=== PATIENT | male | born 1985 | race Caucasian/White ===

== ENCOUNTER 2017-07-15 20:50 | Inpatient (IN) | payer BC ==
[~2017-07-15] VITALS: Ht 182.9 cm; Wt 82.1 kg
[2017-07-15] MEDS ORDERED: ZOFRAN IV STA (21:26)
[2017-07-15] MEDS ORDERED: NS 1000ML 1,000 ML IV STA (21:26)
[2017-07-15] MEDS ORDERED: SUBLIMAZE IV STA ×2 (21:26→23:01)
--- NOTE | 2017-07-15 21:38 | ER.PDOC ---
General Chief Complaint: Abdomen Pain Stated Complaint: ABD PAIN Time seen by MD: 21:24 Source: patient Exam Limitations: no limitations History of Present Illness Initial Comments Patient presents with right lower quad pain. patient states pain started around 2 am this am . patient states that pain is sharp and non radiating and constant. not worse with anything. sometimes better with holding. patient states + fevers n/v. no diarrhea or constipatoin . no recent travel or sick contacts. Timing/Duration: 24 hours Severity/Quality: moderate Radiation: RLQ Associated Symptoms: fever/chills, nausea/vomiting Allergies: Coded Allergies: No Known Allergies (Unverified , 07/15/17) Vital Signs First Vital Signs Date Time Temp Pulse Resp B/P (MAP) Pulse Ox O2 Delivery O2 Flow Rate FiO2 07/15/17 21:15 99.4 68 18 99 Room Air Last Vital Signs Date Time Temp Pulse Resp B/P (MAP) Pulse Ox O2 Delivery O2 Flow Rate FiO2 07/15/17 21:18 99.4 07/15/17 21:15 68 18 99 Room Air Past Medical History Medical History: no pertinent history Surgical History: no surgical history Social History Smoking: non-smoker Alcohol Use: occassionally Drug Use: none Constitutional: chills, denies diaphoresis, fever, denies malaise EENTM: denies tearing, denies ear pain, denies ear discharge Respiratory: denies cough, denies shortness of breath, denies wheezing Cardiovascular: denies chest pain, denies edema, denies palpitations Gastrointestinal: abdominal pain, denies constipated, denies diarrhea, nausea, vomiting Genitourinary: denies burning, denies dysuria, denies discharge Musculoskeletal: denies back pain, denies joint swelling Hematologic/Lymphatic: denies blood clots, denies easy bleeding, denies easy bruising All Other Systems: Reviewed and Negative Physical Exam General Appearance: No Apparent Distress HEENT: PERRL/EOMI, Normal ENT Inspection Neck: Non-Tender, Full Range of Motion, Supple Respiratory: lungs clear, normal breath sounds, no respiratory distress, no accessory muscle use Cardiovascular: Normal Peripheral Pulses, Regular Rate, Rhythm, No Edema, No Murmur Gastrointestinal: Normal Bowel Sounds, Other (+ ttp to the right lower quad, with mild voluntary guarding, without rebound. 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 on exam wtih + fevers and garuding. concern for appendiciits. labs ordered. ct ordered patients labs with elevated wbc h/h stable. lytes with slightly low k otherwise stable. coags stable ct results pending. pateint ct with + uncomplicated appendicitis. i spoke with dr grant with [facility] , would like continued hydration as well as starting cefoxitin 2 g q 6 and admit to the hospitlist i spoke with dr vale who is also aware of the patient. patient and family updated on results and need for admission. understands and agrees. EKG/XRAY/CT/US CT Comments: acute appendicitis Consult/PCP Time Consult/PCP Called: 23:11 Consult/PCP: dr grant with [facility] Course Blood Pressure Systolic: 119 Blood Pressure Diastolic: 69 Blood Pressure Mean: 86 Departure Time of Disposition: 23:13 Disposition: 09 ADMITTED INPATIENT Impression: Primary Impression: Acute appendicitis Condition: Stable Referrals: PCP,UNKNOWN (PCP) PRIMARY CARE PROVIDER Duration or Time Spent with Pa: 60 DARNELL PETERS MD Jul 15, 2017 21:38
[2017-07-15 21:42] LABS: BASOPHIL % 0.1 % (0.0-0.2); EOSINOPHIL # 0.1 10^3/uL (0.0-0.2); EOSINOPHIL % 0.6 % (0.0-5.0); HEMOGLOBIN 15.5 g/dL (13.9-16.3); LYMPHOCYTES # 1.1 10^3/uL (1.0-4.8); MEAN CELL HGB 30.9 pg (26-34); MEAN CELL HGB CONCENTRATION 33.7 g/dL (33-37); MEAN CORP VOLUME 91.6 fL (78-100); MEAN PLATELET VOLUME 11.6 fL (7.8-11.0); MONOCYTES # 1.3 10^3/uL (0.3-0.8); MONOCYTES % 10.5 % (5.0-12.0); NEUTROPHIL # 10.1 10^3/uL (1.8-7.7); NEUTROPHILS % 79.6 % (41.0-85.0); RED CELL DISTRIBUTION WIDTH 12.7 % (11.5-14.5); WHITE BLOOD CELL 12.7 10^3/uL (4.5-11.0)
[2017-07-15] MEDS ORDERED: NS 1000ML 1,000 ML ONE (21:46)
[2017-07-15] MEDS ORDERED: ZOFRAN ONE (21:46)
[2017-07-15] MEDS ORDERED: SUBLIMAZE ONE (21:46)
--- NOTE | 2017-07-15 21:56 | NUR ---
TO CT PATIENT TO CT VIA WHEELCHAIR WITH CORAZON HOPKINS
[2017-07-15 22:00] LABS: CALCIUM 9.5 mg/dL (8.4-10.5); CARBON DIOXIDE 26.4 mmol/L (20.0-32)
[2017-07-15 22:20] VITALS: BP 114/71
--- NOTE | 2017-07-15 22:56 | DIREP ---
PROCEDURE:CT ABDOMEN/PELVIS W/ CONTRAST COMPARISON:None. INDICATIONS:right lower abd TECHNIQUE:Axial images were created through the abdomen and pelvis with non-ionic intravenous contrast material. Oral contrast was administered. Sagittal and coronal reconstructions were performed from source images. FINDINGS: LOWER CHEST:Dependant atelectasis. LIVER: No hepatic lesion. Portal veins are patent. BILIARY: Gallbladder is unremarkable, no intra or extrahepatic biliary dilation. PANCREAS: Unremarkable. SPLEEN: Normal, nonenlarged. KIDNEYS: No renal mass. No right kidney. The left kidney is mildly compensatory early large at 12.6 cm. The No hydronephrosis or collecting system stone identified. ADRENALS: Normal. AORTA/VASCULAR: Circumaortic left renal vein. No aneurysm or dissection. RETROPERITONEUM: No adenopathy or mass. BOWEL/MESENTERY: No evidence of obstruction. Appendix is dilated and there is thickening of the wall, mild periappendiceal stranding suggesting acute appendicitis. No periappendiceal abscess. Mild adjacent inflammation in the cecum. ABDOMINAL WALL: Normal. No mass or hernia. URINARY BLADDER: Inherently limited evaluation of the wall; unremarkable for level of distension. PELVIS: Prostatic tissue present. No adenopathy. BONES: No bony lesion or fracture. OTHER: No free air or fluid. 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 CONCLUSION: 1. Acute appendicitis. Dictated by: Ember Littlejohn MD on 07/15/2017 at 10:51 PM
[2017-07-15 23:03] LABS: BILIRUBIN,URINE NEGATIVE (NEGATIVE); UROBILINOGEN,URINE NORMAL (NEGATIVE)
[2017-07-15 23:04] LABS: APPEARANCE,URINE CLEAR (CLEAR); UA COLOR YELLOW (YELLOW)
[2017-07-15] MEDS ORDERED: MEFOXIN 2 GM in NS 100ML 100 ML IV STA (23:06)
[2017-07-15 23:20] VITALS: BP 124/74
[2017-07-15] MEDS ORDERED: NS 100ML 100 ML IV ONE (23:26)
[2017-07-15] MEDS ORDERED: MEFOXIN ONE (23:26)
[2017-07-15] MEDS: SUBLIMAZE IV SCH (23:30)
[2017-07-16] VITALS (9 sets, daily range): BP systolic 90–133; BP diastolic 45–61
--- NOTE | 2017-07-16 00:05 | NUR ---
report pt arived on a wheelchair from ER. Dr. Jean waws in the room when pt arived. He gaeve instruction for the procedure tomoorw. Dr. Jean allowed pt to have clear liquid until 1 or 2 am. Vital signs taken and recorded. Pt verbalized no pain at the moment. Comfort measures doen. Call light withn reach. Assessment done. Will continue to monitor
[2017-07-16] MEDS: NS 1000ML 1,000 ML SCH ×4 (00:23→17:21)
[2017-07-16] MEDS ORDERED: ZOFRAN IV PRN ×2 (00:30→09:00)
[2017-07-16] MEDS ORDERED: LACTATED RINGERS 1,000 ML IV SCH (00:30)
[2017-07-16] MEDS ORDERED: MORPHINE SULFATE IV PRN ×2 (00:30→09:00)
[2017-07-16] MEDS: MORPHINE SULFATE IV PRN ×3 (00:51→18:52)
[2017-07-16] MEDS: NORCO 5MG PO PRN ×3 (04:02→21:35)
[2017-07-16] MEDS: ZOFRAN IV SCH ×6 (04:04→20:00)
[2017-07-16] MEDS ORDERED: NS 100ML 100 ML IV ONE ×3 (05:29→07:29)
[2017-07-16] MEDS: SUBLIMAZE IV SCH ×4 (05:30→23:30)
[2017-07-16] MEDS ORDERED: MEFOXIN ONE ×2 (05:31→07:29)
[2017-07-16] MEDS: MEFOXIN 2 GM in NS 100ML 100 ML IV SCH ×5 (05:52→17:20)
[2017-07-16] MEDS: LOVENOX SQ SCH (05:56)
--- NOTE | 2017-07-16 06:50 | NUR ---
OR HOLDING PT TAKEN TO OR HOLDING, REPORT GIVEN TO JORGE LEVI.
[2017-07-16] MEDS ORDERED: NS 1000ML 1,000 ML ONE (06:58)
[2017-07-16] MEDS: PROTONIX IV IV SCH ×3 (07:00→09:43)
[2017-07-16] MEDS ORDERED: NEOSTIGMINE ONE (07:03)
[2017-07-16] MEDS ORDERED: DECADRON ONE (07:03)
[2017-07-16] MEDS ORDERED: TORADOL ONE (07:03)
[2017-07-16] MEDS ORDERED: ZEMURON IV ONE (07:04)
[2017-07-16] MEDS ORDERED: VERSED ONE (07:04)
[2017-07-16] MEDS ORDERED: DIPRIVAN IV ONE (07:05)
[2017-07-16] MEDS ORDERED: PEPCID IV ONE (07:06)
[2017-07-16] MEDS ORDERED: EPHEDRINE SULFATE ONE (07:06)
[2017-07-16] MEDS ORDERED: LIDOCAINE 2% VIAL ONE (07:06)
[2017-07-16] MEDS ORDERED: SENSORCAINE-MPF 0.5% VIAL ONE (07:09)
[2017-07-16] MEDS ORDERED: SODIUM CHLORIDE IRR BAG 1,000 ML ONE (07:09)
[2017-07-16] MEDS ORDERED: SODIUM CHLORIDE IR ONE (07:09)
[2017-07-16] MEDS ORDERED: GENTAMICIN SULFATE ONE (07:10)
[2017-07-16] MEDS ORDERED: SUBLIMAZE IV PRN (09:00)
[2017-07-16] MEDS ORDERED: DEMEROL IV PRN (09:00)
[2017-07-16] MEDS ORDERED: PHENERGAN IV PRN (09:00)
--- NOTE | 2017-07-16 09:30 | NUR ---
REPORT RECEIVED BEDSIDE REPORT, PT IN SEMIFOWLERS, VITAL MONITOR INTACT, SCD INTACT, LR FLOWING AT 100CC/HR, 2L/NC, MARIIA TO BULB SUCTION, CALL LIGHT IN REACH HANDRAIL UP X2, PT DENIES PAIN, AT BEDSIDE.
--- NOTE | 2017-07-16 09:40 | NUR ---
DISCHARGE PLANNING CM VISITED WITH PATIENT AND REGARDING DISCHARGE PLAN AND NEEDS. PATIENT LIVES AT HOME WITH HIS . 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 NO DME OR O2 NEEDS. DISCHARGE GOAL IS TO DISCHARGE HOME WITH HIS . CM DEPT WILL CONTINUE TO MONITOR DISCHARGE NEEDS.
[2017-07-16] MEDS: LACTATED RINGERS 1,000 ML IV SCH ×2 (09:44→17:21)
--- NOTE | 2017-07-16 11:05 | OPH ---
DATE OF SURGERY: PREOPERATIVE DIAGNOSIS: Acute appendicitis. POSTOPERATIVE DIAGNOSIS: Acute suppurative appendicitis. SURGEON: Kristopher Jean DO ENDODONTIST: OR staff. ANESTHESIA: General by Lydia Brewer CRNA plus local used on the field. PROCEDURES PERFORMED: Laparoscopic appendectomy with therapeutic laparoscopic peritoneal lavage. SPECIMENS: Appendix to path. ESTIMATED BLOOD LOSS: 7 mL. COUNTS: At the completion of the case, counts were correct per OR staff. DESCRIPTION OF PROCEDURE: The patient is a 31-year-old male, known from previous evaluation. Prior to procedure, informed consent was obtained. At the time of procedure, he was taken to the operative suite and placed in supine position. After timeout was completed, general anesthesia was obtained. His abdomen was clipped, prepped and draped in the normal fashion. Local was used to anesthetize the supraumbilical region. Incision was created and 5 mm trocar was introduced into the abdomen with Endo camera visualization. Once in the abdomen, pneumoperitoneum was induced to the level of 14 mmHg. Next, under camera visualization, 5 mm trocar was placed inferiorly in the left lower quadrant, one was placed superiorly in the left lower quadrant. Attention was directed towards the appendix. There was noted to be some purulent fluid in the right lower quadrant. The appendix was gently dissected from surrounding tissues and mobilized to allow exposure and the mesoappendix was divided to the base of appendix using the Harmonic scalpel. With adequate exposure, 2 PDS Endoloops were placed on the base of the appendix. They were secured and the long strand was divided. The appendix was divided using Harmonic scalpel. Inferior trocar was removed and 5 mm EndoCatch bag was placed through the trocar tract. The appendix was placed in it. The appendix was removed through the trocar tract. However, due to the dilated size of the appendix , tract has to be dilated some and the skin incision was extended. The identified purulent fluid was suctioned and the abdominal cavity was irrigated. Any further identified pools of fluid were suctioned. There was noted to be some minimal fluid by the liver, it was suctioned and also in the pelvis. A drain was passed into the inferior trocar site, placed through the pelvis to the right lower quadrant. The remaining sites were visualized with the camera and removed. Fascia on the inferior incision was approximated around the drain in a pursestring fashion using 0 Vicryl suture. All 3 trocar sites were irrigated and localized. Skin on the inferior trocar site was closed with 2-0 nylon to secure the drain and the remaining two incisions closed with 4-0 Monocryl. The patient was cleaned. Dressings were applied. Drapes removed. The patient tolerated these procedures well. There were no acute complications noted. Kristopher Jean DO DR: RODNEY/danie JOB# [id number] CC: Erick Betancourt MD
--- NOTE | 2017-07-16 11:20 | NUR ---
AMBULATION UP AND AMBULATING WITH SPOUSE IN ALVAREZ, TOLERATING WITH NO S/S OF DISTRESS.
[2017-07-16 16:46] LABS: BASOPHIL % 0.1 % (0.0-0.2); HEMOGLOBIN 13.6 g/dL (13.9-16.3); LYMPHOCYTES # 0.5 10^3/uL (1.0-4.8); LYMPHOCYTES % 6.2 % (24.0-44.0); MEAN CELL HGB 30.6 pg (26-34); MEAN CELL HGB CONCENTRATION 32.7 g/dL (33-37); MEAN CORP VOLUME 93.7 fL (78-100); MEAN PLATELET VOLUME 12.2 fL (7.8-11.0); MONOCYTES # 0.3 10^3/uL (0.3-0.8); MONOCYTES % 3.8 % (5.0-12.0); NEUTROPHIL # 6.8 10^3/uL (1.8-7.7); NEUTROPHILS % 89.8 % (41.0-85.0); RED CELL DISTRIBUTION WIDTH 12.8 % (11.5-14.5); WHITE BLOOD CELL 7.5 10^3/uL (4.5-11.0)
[2017-07-16 18:08] LABS: BAND NEUTROPHILS 5 % (2-6); BASOPHIL 1 % (0-2); LYMPHOCYTE 9 % (25-36); MONOCYTE 2 % (3-9); SEGMENTED NEUTROPHILS 83 % (31-76)
--- NOTE | 2017-07-16 18:37 | NUR ---
report received report from offgoing shift
--- NOTE | 2017-07-16 20:24 | CNH ---
DATE OF CONSULTATION: CHIEF COMPLAINT: Appendicitis. HISTORY OF PRESENT ILLNESS: This is a 31-year-old male who reports he had onset of abdominal pain this a.m. at 0200 on 07/15/2017. He describes it as dull, nonradiating pain. He initially thought he needed to have a bowel movement followed by hunger, neither of which improved his pain. He had some nausea and vomiting and subsequently presents to the ER at [facility]. He was noted to have a slightly elevated white count. A CT scan is positive for appendicitis. I initially evaluated in the ER and now he is on the Med-Surg floor. He is alert and oriented x 3, he is very appropriate and cooperative with all history and physical. PAST MEDICAL HISTORY: He reports seasonal allergies. OUTPATIENT MEDICATIONS: Include montelukast, Claritin, probiotic daily and some vitamins. ALLERGIES: NO KNOWN DRUG ALLERGIES. PAST SURGICAL HISTORY: Denies. SOCIAL HISTORY: Denies tobacco or illicit drug use. He reports occasional alcohol consumption. IMMUNIZATIONS: He did not get a flu shot this last season. FAMILY HISTORY: Mother is living age 60. She has a history of hypertension. Father is living age 63, has hypertension. There is some remote family history of prostate cancer. No reported early coronary artery disease or GI malignancies. REVIEW OF SYSTEMS: CONSTITUTIONAL: He did not report any fever, chills or weakness. SEASONAL ALLERGIES: Are positive as well as some cough associated. ENDOCRINE: He denies thyroid disease or diabetes. CARDIOVASCULAR: He denies chest pain or trouble breathing. PULMONARY: He denies dyspnea or cough. ABDOMEN: As per HPI. MUSCULOSKELETAL: He reports he hurt his left arm recently, but otherwise, no routine pain, stiffness, swelling in muscle, joints or bones. NEUROLOGIC: Denies any seizures or loss of consciousness. PSYCHIATRIC: Denies any depression, stress or anxiety. GENITOURINARY: He denies dysuria, frequency, urgency; however, he is noted on CT scan to have a single kidney. When he is asked about it, he does not report previous knowledge. PHYSICAL EXAMINATION: GENERAL: This is an alert and oriented 31-year-old male in no acute distress. He is seen initially in the ER, his family is present, very cooperative with history and physical. VITAL SIGNS: Height is 6 feet even, weight is 180 pounds, stated by the patient. Vital signs show temperature 99.4, pulse at time of assessment is 66, blood pressure 116/48, respiratory rate of 12. HEENT: Normocephalic, atraumatic. [place] mucous membranes. NECK: Supple and soft. Trachea is midline. He has no JVD or thyromegaly. HEART: Essentially regular rate and rhythm without any murmurs. LUNGS: Clear to auscultation bilaterally. ABDOMEN: Bowel sounds positive and soft. He has a weakly positive Rovsing's and focal tenderness in right lower quadrant. EXTREMITIES: Show positive radial pulses bilaterally, positive dorsal pedal pulses bilaterally. NEUROLOGIC: No acute findings. Cranial nerves 2-12 grossly intact. SKIN AND INTEGUMENT: Warm and dry. LABORATORY STUDIES: White count 12.7, hemoglobin 15.5, platelet count 200. Chemistry shows BUN of 12, creatinine 1.34, potassium is low at 3.4. Coagulation studies show PT 10.6, PTT of 25.4. Urine shows specific gravity 1.010, essentially normal. IMAGING STUDIES: CAT scan shows changes consistent with appendicitis. SURGICAL ASSESSMENT: 1. Acute appendicitis. 2. Seasonal allergies. 3. Clinical dehydration. PLAN: 1. The patient is seen and examined. Chart is reviewed. 2. I have discussed with the patient the risks, benefits, alternatives. We will plan for laparoscopic appendectomy in the morning. He will be given IV fluids and pain meds as well as the IV antibiotics, which is already started Kristopher Jean DO DR: RODNEY/danie JOB# [id number] CC: Erick Betancourt MD
[2017-07-17] VITALS: BP 99/67
[2017-07-17] MEDS: ZOFRAN IV SCH ×3 (00:03→08:26)
[2017-07-17] MEDS: MEFOXIN 2 GM in NS 100ML 100 ML IV SCH ×2 (00:04→05:53)
--- NOTE | 2017-07-17 01:55 | NUR ---
ambulation pt complained of gas that casuses pain. Nurse encouragehim to ambulate to promote perilstalsis. Pt agreed to walk with nurse in the hallway. Nurse and pt walked for an hour
[2017-07-17] MEDS: NS 1000ML 1,000 ML SCH ×2 (02:10→08:50)
[2017-07-17] MEDS: LACTATED RINGERS 1,000 ML IV SCH (04:10)
[2017-07-17] MEDS: NORCO 5MG PO PRN ×2 (04:11→08:26)
[2017-07-17 04:42] VITALS: BP 112/67
[2017-07-17] MEDS: SUBLIMAZE IV SCH ×2 (05:30→11:00)
--- NOTE | 2017-07-17 05:37 | PRM.DC ---
Discharge Summary Date of Discharge: Jul 17, 2017 Reason for Visit: Abdominal pain Patient History: Patient reports no known family medical history. History Present Illness: (1) Acute appendicitis Status: Resolved ICD Code: K35.80 - Unspecified acute appendicitis SNOMED: 34702489 Assessment & Plan: Weight lifting restrictions per surgery instructions (2) Seasonal allergies Status: Chronic ICD Code: J30.2 - Other seasonal allergic rhinitis SNOMED: 727558375 General: Alert, Oriented X3, Cooperative, No acute distress HEENT: PERRLA, EOMI Neck: Supple, No JVD Lungs: Clear to auscultation, Normal air movement Heart: Regular rate, Normal S1, Normal S2, No murmurs Abdomen: Normal bowel sounds, Soft, No tenderness Extremities: No clubbing, No cyanosis, No edema Skin: No rashes, No breakdown Neuro: Normal speech, Strength at 5/5 X4 ext, Cranial nerves 3-12 NL Psych/Mental Status: Mental status NL, Mood NL Results(Labs/Rad) Laboratory Tests Test 07/15/17 21:38 07/16/17 16:30 07/16/17 16:52 White Blood Count 12.7 10^3/uL 7.5 10^3/uL Red Blood Count 5.02 10^6/uL 4.44 10^6/uL Hemoglobin 15.5 g/dL 13.6 g/dL Hematocrit 46.0 % 41.6 % Mean Corpuscular Volume 91.6 fL 93.7 fL Mean Corpuscular Hemoglobin 30.9 pg 30.6 pg Mean Corpuscular Hemoglobin Concent 33.7 g/dL 32.7 g/dL Red Cell Distribution Width 12.7 % 12.8 % Platelet Count 200 10^3/uL 161 10^3/uL Mean Platelet Volume 11.6 fL 12.2 fL Neutrophils (%) (Auto) 79.6 % 89.8 % Lymphocytes (%) (Auto) 9.0 % 6.2 % Monocytes (%) (Auto) 10.5 % 3.8 % Neutrophils # (Auto) 10.1 10^3/uL 6.8 10^3/uL Lymphocytes # (Auto) 1.1 10^3/uL 0.5 10^3/uL Monocytes # (Auto) 1.3 10^3/uL 0.3 10^3/uL Absolute Immature Granulocyte (auto 0.03 10^3 u/L 0.01 10^3 u/L Eosinophils % 0.6 % 0.0 % Basophils % 0.1 % 0.1 % Basophils # 0.0 10^3/uL 0.0 10^3/uL Eosinophil Count 0.1 10^3/uL 0.0 10^3/uL Prothrombin Time 10.6 SEC Prothrombin Time INR (Non-Therap) 1.1 Activated Partial Thromboplast Time 25.4 SEC Sodium Level 145 mmol/L Potassium Level 3.4 mmol/L Chloride Level 106.0 mmol/L Carbon Dioxide Level 26.4 mmol/L Anion Gap 16.0 Blood Urea Nitrogen 12 mg/dL Creatinine 1.34 mg/dL Estimated GFR () 74.7 BUN/Creatinine Ratio 8.0 Glucose Level 106 mg/dL Calcium Level 9.5 mg/dL Total Bilirubin 0.8 mg/dL Aspartate Amino Transf (AST/SGOT) 18 U/L Alanine Aminotransferase (ALT/SGPT) 39 U/L Alkaline Phosphatase 120 U/L Total Protein 7.4 g/dL Albumin 4.3 g/dL Globulin 3.1 Amylase Level 37 U/L Lipase 73 U/L Percent Immature Gran (Cell Imm) 0.20 % 0.10 % Differential Total Cells Counted 100 #CELLS Segmented Neutrophils 83 % Band Neutrophils 5 % Lymphocytes 9 % Monocytes 2 % Basophils 1 % Platelet Estimate ADEQUATE Platelet Morphology NORMAL Blood Morphology Comment NORMAL MORPHOLOGY No Active Prescriptions or Reported Meds Sepsis Evaluation @ Discharge Course Blood Pressure Systolic: 112 Blood Pressure Diastolic: 67 Blood Pressure Mean: 82 Notes Mr Stauffer presented with abdominal pain. workup revealed acute appendicitis. Surgery was performed without complications. A MARIIA drain was left in after surgery. On day of discharge he was tolerating diet well, ambulating and pain well controlled. Plan Discharge Date: Jul 17, 2017 Dicharge DX: 1. Acute appendicitis Discharge Disposition: Stable Plan Medications per discharge list Diet as tolerated Activity as tolerated with restrictions per Surgery instructions Follow up with Dr Jean next week Discharge plans discussed with patient, he is his own decision maker and does understand and concur with plans Time spent 25 minutes SHARRI ALVAREZ MD Jul 17, 2017 05:36
[2017-07-17] MEDS ORDERED: ACET-685 PO (05:41)
[2017-07-17] MEDS ORDERED: PROM12.55 PO (05:41)
[2017-07-17] MEDS ORDERED: CEPH500C PO (05:41)
[2017-07-17] MEDS: LOVENOX SQ SCH (05:53)
[2017-07-17 07:29] VITALS: BP 105/61
--- NOTE | 2017-07-17 08:06 | PRM.PN ---
Progress Note Subjective Date: Jul 17, 2017 Time: 08:03 Physician Notes: s/p lap appendectomy. Feels well. Some pain at the drain site. Tolerating clear liquids. Passing flatus. Hungry Objective Review IO, Exams,& Results Problems Resolved Problems: (1) Acute appendicitis Vital signs Date Time Temp Pulse Resp B/P (MAP) Pulse Ox O2 Delivery O2 Flow Rate FiO2 07/17/17 07:39 Room Air 07/17/17 07:32 99 16 97 07/17/17 07:29 98.5 105/61 (76) 07/16/17 09:16 3 Intake and Output 07/17/17 07:00 Intake Total 6193 ml Output Total 1475 ml Balance 4718 ml Intake Oral 1960 ml Electrolyte Solution 2320 ml IV Total 1913 ml Output Urine Total 1400 ml Drainage Total 75 ml # Voids 4 Laboratory Tests Test 07/15/17 21:38 07/16/17 16:30 07/16/17 16:52 White Blood Count 12.7 10^3/uL 7.5 10^3/uL Red Blood Count 5.02 10^6/uL 4.44 10^6/uL Hemoglobin 15.5 g/dL 13.6 g/dL Hematocrit 46.0 % 41.6 % Mean Corpuscular Volume 91.6 fL 93.7 fL Mean Corpuscular Hemoglobin 30.9 pg 30.6 pg Mean Corpuscular Hemoglobin Concent 33.7 g/dL 32.7 g/dL Red Cell Distribution Width 12.7 % 12.8 % Platelet Count 200 10^3/uL 161 10^3/uL Mean Platelet Volume 11.6 fL 12.2 fL Neutrophils (%) (Auto) 79.6 % 89.8 % Lymphocytes (%) (Auto) 9.0 % 6.2 % Monocytes (%) (Auto) 10.5 % 3.8 % Neutrophils # (Auto) 10.1 10^3/uL 6.8 10^3/uL Lymphocytes # (Auto) 1.1 10^3/uL 0.5 10^3/uL Monocytes # (Auto) 1.3 10^3/uL 0.3 10^3/uL Absolute Immature Granulocyte (auto 0.03 10^3 u/L 0.01 10^3 u/L Eosinophils % 0.6 % 0.0 % Basophils % 0.1 % 0.1 % Basophils # 0.0 10^3/uL 0.0 10^3/uL Eosinophil Count 0.1 10^3/uL 0.0 10^3/uL Prothrombin Time 10.6 SEC Prothrombin Time INR (Non-Therap) 1.1 Activated Partial Thromboplast Time 25.4 SEC Sodium Level 145 mmol/L Potassium Level 3.4 mmol/L Chloride Level 106.0 mmol/L Carbon Dioxide Level 26.4 mmol/L Anion Gap 16.0 Blood Urea Nitrogen 12 mg/dL Creatinine 1.34 mg/dL Estimated GFR () 74.7 BUN/Creatinine Ratio 8.0 Glucose Level 106 mg/dL Calcium Level 9.5 mg/dL Total Bilirubin 0.8 mg/dL Aspartate Amino Transf (AST/SGOT) 18 U/L Alanine Aminotransferase (ALT/SGPT) 39 U/L Alkaline Phosphatase 120 U/L Total Protein 7.4 g/dL Albumin 4.3 g/dL Globulin 3.1 Amylase Level 37 U/L Lipase 73 U/L Percent Immature Gran (Cell Imm) 0.20 % 0.10 % Differential Total Cells Counted 100 #CELLS Segmented Neutrophils 83 % Band Neutrophils 5 % Lymphocytes 9 % Monocytes 2 % Basophils 1 % Platelet Estimate ADEQUATE Platelet Morphology NORMAL Blood Morphology Comment NORMAL MORPHOLOGY Current Medications Medications (Trade) Dose Ordered Sig/Fern PRN Reason Start Time Stop Time Status Last Admin Acetaminophen/ Hydrocodone Bitart ([place] 5mg) 1 ea Q4H PRN PAIN MODERATE 07/16/17 00:30 08/15/17 00:29 07/17/17 04:11 Cefoxitin Sodium 2 gm/Sodium Chloride 100 ml @ 100 mls/hr Q6HR 07/16/17 00:00 08/15/17 00:00 07/17/17 05:53 Enoxaparin Sodium (Lovenox) 40 mg Q24HRS 07/16/17 06:00 08/15/17 05:59 07/17/17 05:53 Fentanyl Citrate (Sublimaze) 12.5 mcg Q5MIN PRN PAIN 07/16/17 09:00 07/17/17 08:59 Fentanyl Citrate (Sublimaze) 50 mcg Q6H 07/15/17 23:30 08/14/17 23:29 Meperidine HCl (Demerol) 12.5 mg Q5MIN PRN SHIVERING 07/16/17 09:00 5/13/18 08:59 Morphine Sulfate (Morphine Sulfate) 1 mg Q4H PRN PAIN MODERATE 07/16/17 00:30 08/15/17 00:29 07/16/17 18:52 Morphine Sulfate (Morphine Sulfate) 2 mg Q5MIN PRN PAIN MILD 07/16/17 09:00 07/17/17 08:59 Morphine Sulfate (Morphine Sulfate) 3 mg Q3H PRN PAIN 07/16/17 00:30 08/15/17 00:29 Ondansetron HCl (Zofran) 4 mg PRN PRN nausea 07/16/17 09:00 07/21/17 08:59 Ondansetron HCl (Zofran) 4 mg Q4HR 07/16/17 00:00 08/15/17 00:00 07/17/17 03:53 Ondansetron HCl (Zofran) 4 mg Q4HR PRN NAUSEA / VOMITING 07/16/17 00:30 08/15/17 00:29 Pantoprazole Sodium (Protonix Iv) 40 mg DAILY 07/16/17 07:00 08/15/17 06:59 07/16/17 09:43 Promethazine HCl (Phenergan) 12.5 mg PRN PRN NAUSEA / VOMITING 07/16/17 09:00 07/21/17 08:59 Sodium Chloride 1,000 ml @ 150 mls/hr Q6H40M 07/15/17 23:30 08/14/17 23:29 07/16/17 00:23 Heart: Regular rate, Normal S1, Normal S2, No murmurs Abdomen: Normal bowel sounds, Soft, No tenderness, Other (MARIIA 10 ml in the last shift. ) Lungs: Clear to auscultation, Normal air movement Skin: No rashes, No breakdown Assessment & Plan: Assessment Doing well Plan 1) Remove MARIIA around 10 am if not much coming out. 2) OK to go home after that. DORA IVAN MD Jul 17, 2017 08:06
--- NOTE | 2017-07-17 08:58 | NUR ---
Pt ambulating Pt ambulating in [place] with spouse. Strong steady gait noted. No s/s of distress noted.
--- NOTE | 2017-07-17 10:08 | NUR ---
MARIIA DRAIN Discontinued MARIIA drain. No drainage noted. Pt had no discomfort @ time of removal. Cleaned wound and applied dressing
--- NOTE | 2017-07-17 10:43 | NUR ---
DISCHARGE Pt discharged. Pt transported off of unit via wheelchair. No s/s of distress noted @ time of discharge. Pt given discharge instructions and has no questions or concerns.
[2017-07-17 12:59] VITALS: BP 105/61
--- NOTE | 2017-07-18 14:04 | HPH ---
ADMIT DATE: 07/16/2017 CHIEF COMPLAINT: Abdominal pain. HISTORY OF PRESENT ILLNESS: The patient is a very healthy 32-year-old male with a past medical history significant only for seasonal allergies. He presented to the ER initially with complaints of abdominal pain. He also complained of some fever, chills, nausea and vomiting, but no diarrhea. He has no recent travel, no known sick contacts. The pain was sharp in nature, nonradiating and primarily in the right lower quadrant. Workup in ER did reveal acute appendicitis. General Surgery was consulted. He was taken to the operating room for laparoscopic appendectomy. PAST MEDICAL HISTORY: Only includes seasonal allergies. PAST SURGICAL HISTORY: He is status post laparoscopic appendectomy. ALLERGIES: NO KNOWN DRUG ALLERGIES. HOME MEDICATIONS: His only home medication is Singulair. SOCIAL HISTORY: Lives at home. No tobacco use. Rare alcohol use. No illicit drug use. FAMILY HISTORY: Negative for early coronary artery disease or diabetes. REVIEW OF SYSTEMS: CARDIAC: Denies chest pain, shortness of breath or dyspnea on exertion. PULMONARY: No cough, sputum production or pleuritic chest pain. GASTROINTESTINAL: Positive for nausea, vomiting. No diarrhea or constipation. All else negative in 10 point review of system except as in HPI. PHYSICAL EXAMINATION: VITAL SIGNS: Upon arrival to the ER, height 182.9 cm, weight 82.1 kilograms, temperature 99.4, pulse 58, respiratory rate 16, blood pressure 114/71 and O2 saturation 100% on room air. GENERAL: He is alert, in no acute distress at time of exam. HEENT: Pupils equal, round, reactive to light. Sclerae are anicteric. Oropharynx is clear. Mucous membranes are moist. NECK: Supple, no lymphadenopathy. CARDIOVASCULAR: At time of exam was regular rate and rhythm. LUNGS: Clear bilaterally. No wheezing. ABDOMEN: Soft. Bowel sounds are present. He has a MARIIA drain in the left lower quadrant. No significant rebound or guarding with palpation. EXTREMITIES: No cyanosis, clubbing or edema. NEUROLOGIC: Grossly nonfocal. INITIAL LABORATORY DATA: CBC: White count 12.7, hemoglobin 15.5 and platelets 200. Differential: 79% neutrophils, 9% lymphocytes, 10% monocytes. Sodium 145, potassium 3.4, chloride 106, CO2 is 26, BUN 12, creatinine 1.3, glucose is 106, calcium is 9.5, total bilirubin 0.8, AST 18, ALT is 39, alkaline phosphatase 120, total protein 7.4, albumin 4.3, amylase 37, lipase is 73. PT of 10.6, PTT 25.4. UA, pH is 6.5, specific gravity is 1.010, all else is negative . IMAGING STUDIES: Abdomen and pelvis CT revealed acute appendicitis. ASSESSMENT AND PLAN: The patient is a 32-year-old man with acute appendicitis with history of seasonal allergies. 1. General Surgery is consulted. He had laparoscopic appendectomy. 2. Appropriate p.r.n. pain and nausea medication. 3. Diet per General Surgery. 4. IV fluid hydration. 5. We will continue his Singulair. 6. DVT prophylaxis will be with Lovenox. Time spent on 07/16/2017 is 45 minutes. This plan was discussed with the patient. He is his own decision maker. He does understand and concur with plans. Ercik Betancourt MD DR: PORFIRIO/danie JOB# [id number]
== END 2017-07-17 12:15 | disposition home or self-care (01) | DRG 343 ==
LOC: ER 20:50 → MS 23:18
PROVIDERS: ADMIT Internal Medicine; ATTEND Internal Medicine
PROC: 0DTJ4ZZ Resection of Appendix, Percutaneous Endoscopic Approach (ICD-10-PCS; principal; 2017-07-16 07:30)
DX: K35.80 Unspecified acute appendicitis (principal); E86.0 Dehydration; J30.2 Other seasonal allergic rhinitis; Z79.899 Other long term (current) drug therapy; Z80.42 Family history of malignant neoplasm of prostate; Z82.49 Family history of ischemic heart disease and other diseases of the circulatory system
CPT/HCPCS: 36415; 74177; 80053; 81002; 82150; 83690; 85025; 85610; 85730; 88302; 96361; 96374; 96375; 96376; 99285; C9113; G0378; J0694; J1100; J1580; J1650; J1885; J2001; J2250; J2270; J2405; J3010; J3490; J7030; J7050; J7120; J2710; Q9965